=== PATIENT | male | born 1980 | race Caucasian/White ===

== ENCOUNTER 2016-10-16 17:03 | Emergency (ER) | payer OTHER ==
[~2016-10-16] VITALS: Ht 193 cm; Wt 105.5 kg
[~2016-10-16 17:03] MED LIST: BACTDS PO; CEPH-443 PO; HYDR-3498 PO
[2016-10-16 17:07] VITALS: Ht 193 cm; Wt 105.5 kg
--- NOTE | 2016-10-16 17:41 | ERD ---
ER Documentation Chief Complaint Date/Time DATE: 10/16/16 TIME: 17:39 Chief Complaint lower back pain x 1 week HPI This is a 36-year-old male who presents to the emergency room for evaluation of atraumatic back pain. 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 He states that he has had plain in his back over the past 2 weeks and he localized the pain to the lower back. The patient denies any fevers, urinary retention, urinary incontinence, or numbness or tingling associated with this. He states it is worse when he bends forward. Patient states she has been taking Motrin at home however came to the emergency room for pain medication. After some questioning the patient did state that he is in a narcotic program for outpatient treatment. ROS All systems reviewed and are negative except as per history of present illness. Medications Home Meds Active Scripts Hydrocodone Bit-Acetaminophen* ([place]*) 5-325 Mg Tab, 1 TAB PO Q6 Y for PAIN, # 14 TAB Prov:RHODA MCARTHUR PA-C 03/09/15 Sulfamethoxazole-Trimethoprim* (Bactrim* DS) 800-160 Mg Tab, 1 TAB PO BID for 10 Days, TAB Prov:RHODA MCARTHUR PA-C 03/09/15 Cephalexin* (Keflex*) 500 Mg Capsule, 500 MG PO QID for 7 Days, CAP Prov:RHODA MCARTHUR PA-C 03/09/15 Allergies Allergies: Coded Allergies: No Known Allergy (Unverified , 03/09/15) PMhx/Soc History of Surgery: No Anesthesia Reaction: No Hx Neurological Disorder: No Hx Respiratory Disorders: No Hx Cardiac Disorders: No Hx Psychiatric Problems: No Hx Miscellaneous Medical Probl: Yes (HIV positive) Hx Alcohol Use: No Hx Substance Use: Yes Hx Tobacco Use: Yes Smoking Status: Current every day smoker Physical Exam Vitals Vital Signs Date Time Temp Pulse Resp B/P Pulse Ox O2 Delivery O2 Flow Rate FiO2 10/16/16 17:07 98.0 118 18 111/72 99 Physical Exam Const: No acute distress Head: Atraumatic Eyes: Normal Conjunctiva ENT: Normal External Ears, Nose and Mouth. Neck: Full range of motion..~ No meningismus. Resp: Clear to auscultation bilaterally Cardio: Regular rate and rhythm, no murmurs Abd: Soft, non tender, non distended. Normal bowel sounds Skin: No petechiae or rashes Back: Paraspinal tenderness bilaterally from L1-L3, no gross deformities, no step no midline or flank tenderness Ext: No cyanosis, or edema Neur: Awake and alert Psych: Normal Mood and Affect Procedures/MDM This 36-year-old male presents to the emergency room for evaluation of atraumatic back pain. When I evaluated this patient had mild tenderness to palpation over his paraspinal muscles in the lumbar spine. The patient denies any new trauma. The patient did say he came to the emergency room for pain medicine however after questioning he does state that he is on an outpatient narcotic program. The patient was given 25 mg p.o. of tramadol. I advised him I will not write him a prescription for narcotic medication and he will be discharged home at this time with a prescription for Tylenol for acute lumbar strain. Patient presents today with atraumatic back pain. Although infection, malignancy, GI, , and vascular causes have been considered in this patient, the patient's clinical presentation is most consistent with a musculoskeletal cause. There is neither evidence of any acute neurologic damage, nor of loss of function and thus, advanced imaging studies have been deferred. Patient will be treated conservatively with appropriate pain control precautionary discharge instructions provided. My Smoking Cessation Therapy: Pt. was lectured for greater than 3 minutes on the health risks of continued smoking and the benefits of cessation. Departure Diagnosis: Primary Impression: Back pain Additional Impressions: Tobacco abuse Tobacco abuse counseling Condition: Stable YOANA WOLFE DO October 16, 2016 17:41
[2016-10-16] MEDS ORDERED: ACET500T98 PO (17:42)
[2016-10-16] MEDS ORDERED: traMADol 50 MG TAB PO ONE (18:00)
== END 2016-10-16 19:22 | disposition home or self-care (01) ==
LOC: FTE 17:03
DX: M54.5 Low back pain (principal); F17.210 Nicotine dependence, cigarettes, uncomplicated; Z71.6 Tobacco abuse counseling
CPT/HCPCS: Z7502; Z7610; 99283

== ENCOUNTER 2017-03-02 00:05 | Emergency (ER) | payer OTHER ==
[~2017-03-02] VITALS: Ht 185.4 cm; Wt 121.5 kg
[~2017-03-02 00:05] MED LIST changes: +ACET500T98 PO
[2017-03-02 00:15] VITALS: Ht 185.4 cm; Wt 121.5 kg
[2017-03-02] MEDS ORDERED: morphine 2 MG INJ IV STA (01:36)
[2017-03-02] MEDS ORDERED: SOD CHLORIDE 0.9% 1,000 ML IV STA (01:36)
[2017-03-02 02:33] LABS: BASOPHIL # 0.1 10^3/ul (0.0-0.1); BASOPHILS % 0.4 % (0.0-2.0); EOSINOPHILS # 0.5 10^3/ul (0.0-0.5); EOSINOPHILS % 4.3 % (0.0-7.0); HEMATOCRIT 46.1 % (42.0-52.0); HEMOGLOBIN 15.3 g/dl (14.0-18.0); LYMPHOCYTES # 3.6 10^3/ul (0.8-2.9); LYMPHOCYTES % 32.4 % (15.0-51.0); MEAN CORPUSCULAR HEMOGLOBIN 30.8 pg (29.0-33.0); MEAN CORPUSCULAR HGB CONC 33.2 g/dl (32.0-37.0); MEAN CORPUSCULAR VOLUME 92.8 fl (82.0-101.0); MEAN PLATELET VOLUME 10.4 fl (7.4-10.4); MONOCYTE # 1.1 10^3/ul (0.3-0.9); MONOCYTES % 9.9 % (0.0-11.0); NEUTROPHIL # 5.9 10^3/ul (1.6-7.5); NEUTROPHILS % 52.6 % (39.0-77.0); PLATELET COUNT 262 10^3/UL (140-415); RED BLOOD COUNT 4.97 10^6/ul (4.70-6.10); RED CELL DISTRIBUTION WIDTH 12.7 % (11.5-14.5); WHITE BLOOD COUNT 11.2 10^3/ul (4.8-10.8)
[2017-03-02 02:40] LABS: ADD UMIC NO; UR ASCORBIC ACID NEGATIVE (NEGATIVE); UR BILIRUBIN (Dip) NEGATIVE (NEGATIVE); UR BLOOD (Dip) NEGATIVE (NEGATIVE); UR CLARITY CLEAR (CLEAR); UR COLOR YELLOW (YELLOW); UR GLUCOSE (Dip) NEGATIVE (NEGATIVE); UR KETONES (Dip) NEGATIVE (NEGATIVE); UR LEUKOCYTE ESTERASE (Dip) NEGATIVE Leu/ul (NEGATIVE); UR NITRITE (Dip) NEGATIVE (NEGATIVE); UR SPECIFIC GRAVITY (Dip) 1.025 (1.003-1.030); UR TOTAL PROTEIN (Dip) NEGATIVE (NEGATIVE); UR UROBILINOGEN (Dip) NEGATIVE (NEGATIVE)
[2017-03-02] MEDS ORDERED: KETOROLAC 30 MG INJ IV STA (02:49)
[2017-03-02 02:57] LABS: ALBUMIN 4.4 g/dl (3.3-4.9); ALBUMIN/GLOBULIN RATIO 1.15; BILIRUBIN,INDIRECT 0.2 mg/dl (0-1.1); BILIRUBIN,TOTAL 0.2 mg/dl (0.2-1.3); CALCIUM 9.2 mg/dl (8.4-10.2); CREATININE 0.98 mg/dl (0.61-1.24); POTASSIUM 4.4 mmol/L (3.5-5.1); TOTAL PROTEIN 8.2 g/dl (6.1-8.1)
[2017-03-02] MEDS ORDERED: SOD CHLORIDE 0.9% 100 ML ONE (03:26)
[2017-03-02] MEDS ORDERED: IOHEXOL 300MG/ML 150 ML BTL ONE (03:26)
--- NOTE | 2017-03-02 05:10 | RADRPT ---
PROCEDURE: CT abdomen and pelvis with intravenous contrast. CLINICAL INDICATION: Pain. TECHNIQUE: CT of the abdomen/pelvis was performed utilizing axial images with reconstructions in s agittal and coronal planes after uneventful administration of 100 cc Omnipaque 300. The administered radiation dose is CTDI 22 mGy, DLP 1729 mGy-cm. One or more of the following dose reduction techniq ues were used: automated exposure control, adjustment of the mA and/or kV according to patient size and/or use of iterative reconstruction technique. COMPARISON: No pertinent prior examinations were submitted for comparison. FINDINGS: Visualized Chest: The visualized lung bases are clear. Abdomen: The spleen, pancreas, gallbladder,and adrenal glands are unremarkable. The liver is diffusely dec reased in attenuation, compatible with hepatic steatosis. The kidneys are without hydronephrosis. No definite urinary calculi are seen. There is no evidence of bowel obstruction. The appendix is normal. No intra-abdominal free air is seen. There is a moderate-sized periumbilical hernia which contains omentum. There is extensive inf lammation within the herniated fat along with small amounts of fluid. Some of the inflammatory osorio es extending to the subjacent omentum. Some diverticula are noted along the sigmoid colon without ev idence of diverticulitis. There is no evidence of intra-abdominal adenopathy or free fluid. Pelvis: There is no evidence of pelvic adenopathy or free fluid. The prostate and bladder are unremarkable. Osseous structures: Unremarkable. IMPRESSION: Moderate-sized omentum containing periumbilical hernia. Inflammatory changes and fluid are seen with in the hernia, suggesting omental infarct. This is presumably causing the patient's symptoms. Hepatic steatosis. RPTAT: HIKT .Abiel Tabares MD, Date Time Electronically viewed and signed by .Abiel Tabares MD, on 03/02/2017 05:09 .T/
[2017-03-02] MEDS ORDERED: HYDR-906 PO (05:17)
[2017-03-02] MEDS ORDERED: NAPR-688 PO (05:17)
--- NOTE | 2017-03-02 05:24 | ERD ---
ER Documentation Chief Complaint Date/Time DATE: 03/02/17 TIME: 05:21 Chief Complaint abd pain, hx hernia HPI This 36-year-old male comes in for pain surrounding his umbilical hernia that he has had for some time. States that it has grown over time. Denies nausea vomiting, fever and chills. Pain is worse when he pushes on it and the pain is sharp in nature. ROS All systems reviewed and are negative except as per history of present illness. Medications Home Meds Active Scripts Hydrocodone/Acetaminophen ([place] 5-325 Tablet) 1 Each Tablet, 1 EACH PO Q6, #19 TAB Prov:FANNYPADMINI DO 03/02/17 Naproxen* (Naproxen*) 500 Mg Tablet, 500 MG PO BID for PAIN, #20 TAB Prov:GREENPADMINI DO 03/02/17 Acetaminophen (Tylenol) 500 Mg Tab, 500 MG PO Q8, #30 TAB Prov:YOANA WOLFE DO 10/16/16 Hydrocodone Bit-Acetaminophen* ([place]*) 5-325 Mg Tab, 1 TAB PO Q6 Y for PAIN, # 14 TAB Prov:RHODA MCARTHUR PA-C 03/09/15 Sulfamethoxazole-Trimethoprim* (Bactrim* DS) 800-160 Mg Tab, 1 TAB PO BID for 10 Days, TAB Prov:RHODA MCARTHUR PA-C 03/09/15 Cephalexin* (Keflex*) 500 Mg Capsule, 500 MG PO QID for 7 Days, CAP Prov:RHODA MCARTHUR PA-C 03/09/15 Allergies Allergies: Coded Allergies: No Known Allergy (Unverified , 03/09/15) PMhx/Soc History of Surgery: No Anesthesia Reaction: No Hx Neurological Disorder: No Hx Respiratory Disorders: No Hx Cardiac Disorders: No Hx Psychiatric Problems: No Hx Miscellaneous Medical Probl: Yes (ADHD) Hx Alcohol Use: No Hx Substance Use: No Hx Tobacco Use: Yes Smoking Status: Never smoker Physical Exam Vitals Vital Signs Date Time Temp Pulse Resp B/P Pulse Ox O2 Delivery O2 Flow Rate FiO2 03/02/17 02:58 92 20 144/91 98 Room Air 03/02/17 00:15 99.2 78 18 198/86 97 Physical Exam Const: [] Head: Atraumatic Eyes: Normal Conjunctiva ENT: Normal External Ears, Nose and Mouth. Neck: Full range of motion..~ No meningismus. Resp: Clear to auscultation bilaterally Cardio: Regular rate and rhythm, no murmurs Abd: Soft, non tender, non distended. Normal bowel sounds Skin: No petechiae or rashes Back: No midline or flank tenderness Ext: No cyanosis, or edema Neur: Awake and alert Psych: Normal Mood and Affect Result Diagram: 03/02/17 0150 03/02/17 0150 Results 24 hrs Laboratory Tests Test 03/02/17 01:50 White Blood Count 11.210^3/ul Red Blood Count 4.9710^6/ul Hemoglobin 15.3g/dl Hematocrit 46.1% Mean Corpuscular Volume 92.8fl Mean Corpuscular Hemoglobin 30.8pg Mean Corpuscular Hemoglobin Concent 33.2g/dl Red Cell Distribution Width 12.7% Platelet Count 12683^3/UL Mean Platelet Volume 10.4fl Neutrophils % 52.6% Lymphocytes % 32.4% Monocytes % 9.9% Eosinophils % 4.3% Basophils % 0.4% Nucleated Red Blood Cells % 0.0/100WBC Neutrophils # 5.910^3/ul Lymphocytes # 3.610^3/ul Monocytes # 1.110^3/ul Eosinophils # 0.510^3/ul Basophils # 0.110^3/ul Nucleated Red Blood Cells # 0.010^3/ul Urine Color YELLOW Urine Clarity CLEAR Urine pH 6.0 Urine Specific [place] 1.025 Urine Ketones NEGATIVEmg/dL Urine Nitrite NEGATIVEmg/dL Urine Bilirubin NEGATIVEmg/dL Urine Urobilinogen NEGATIVEmg/dL Urine Leukocyte Esterase NEGATIVELeu/ul Urine Hemoglobin NEGATIVEmg/dL Urine Glucose NEGATIVEmg/dL Urine Total Protein NEGATIVEmg/dl Sodium Level 143mmol/L Potassium Level 4.4mmol/L Chloride Level 106mmol/L Carbon Dioxide Level 29mmol/L Anion Gap 12 Blood Urea Nitrogen 17mg/dl Creatinine 0.98mg/dl Glucose Level 124mg/dl Calcium Level 9.2mg/dl Total Bilirubin 0.2mg/dl Direct Bilirubin 0.00mg/dl Indirect Bilirubin 0.2mg/dl Aspartate Amino Transf (AST/SGOT) 40IU/L Alanine Aminotransferase (ALT/SGPT) 96IU/L Alkaline Phosphatase 82IU/L Total Protein 8.2g/dl Albumin 4.4g/dl Globulin 3.80g/dl Albumin/Globulin Ratio 1.15 Lipase 122U/L Current Medications Medications (Trade) Dose Ordered Sig/Anthony Route PRN Reason Start Time Stop Time Status Last Admin Dose Admin Sodium Chloride (NS) 1,000 ml @ 1,000 mls/hr Q1H STAT IV 03/02/17 01:36 03/02/17 02:35 DC 03/02/17 01:54 Morphine Sulfate (morphine) 2 mg ONCE STAT IV 03/02/17 01:36 03/02/17 01:37 DC Ketorolac Tromethamine (Toradol) 30 mg ONCE STAT IV 03/02/17 02:49 03/02/17 02:50 DC 03/02/17 02:55 IV Flush 10 ml 10 ml STK-MED ONCE .ROUTE 03/02/17 03:26 03/02/17 03:27 DC 03/02/17 04:02 Sodium Chloride (NS) 100 ml @ ud STK-MED ONCE .ROUTE 03/02/17 03:26 03/02/17 03:27 DC 03/02/17 04:03 Iohexol (Omnipaque 300mg/ ml) 150 ml STK-MED ONCE .ROUTE 03/02/17 03:26 03/02/17 03:27 DC 03/02/17 04:03 Procedures/MDM Omentum containing umbilical hernia with possible omental infarction. Hernia is easily reducible. Patient was given morphine IV fluid and Toradol emergency room with relief of pain. He has no nausea. I am going to discharge him with instructions to see a general surgeon. Patient does have insurance and told to call the number on the card for his primary care doctor and obtain referral through his primary care doctor. Return precautions given for any increasing pain or concerning symptoms. CT abdomen pelvis interpretation: Umbilical hernia with omentum within and no bowel loops, inflammation suggesting possible omental infarction. No bowel obstruction, no free air, no fractures Departure Diagnosis: Primary Impression: Acute abdominal pain Additional Impressions: Umbilical hernia Omental infarction Condition: Stable Patient Instructions: Abdominal Pain, Hernia (Inguinal, Ventral, Umbilical) Additional Instructions: Call your primary care doctor TOMORROW for a RERERRAL TO A GENERAL SUGEON.See the doctor sooner or return here if your condition worsens before your appointment time. PADMINI ESCOBEDO DO Mar 02, 2017 05:24
[2017-03-02 05:28] VITALS: BP 135/85; PULSE 78; RESP 18
== END 2017-03-02 05:30 | disposition home or self-care (01) ==
LOC: E/R 00:05
DX: K42.9 Umbilical hernia without obstruction or gangrene (principal); K55.069 Acute infarction of intestine, part and extent unspecified
CPT/HCPCS: 36415; 74177; 80053; 81003; 83690; 85025; 96374; J1885; J7030; Q9967; Z7502; Z7610

== ENCOUNTER 2017-03-09 19:53 | Emergency (ER) | payer SELFPAY ==
[~2017-03-09] VITALS: Ht 182.9 cm; Wt 122.5 kg
[~2017-03-09 19:53] MED LIST changes: +HYDR-906 PO; +NAPR-688 PO
[2017-03-09 19:57] VITALS: Ht 182.9 cm; Wt 122.5 kg
== END 2017-03-09 22:23 | disposition left against medical advice (07) ==
LOC: E/R 19:53
DX: Z53.21 Procedure and treatment not carried out due to patient leaving prior to being seen by health care provider (principal)

== ENCOUNTER 2017-03-18 12:19 | Emergency (ER) | payer SELFPAY ==
[~2017-03-18] VITALS: Ht 193 cm; Wt 117.5 kg
[2017-03-18 12:29] VITALS: Ht 193 cm; Wt 117.5 kg
== END 2017-03-18 16:09 | disposition left against medical advice (07) ==
LOC: FTE 12:19
DX: Z53.21 Procedure and treatment not carried out due to patient leaving prior to being seen by health care provider (principal)

== ENCOUNTER 2018-03-29 12:16 | Emergency (ER) | END 2018-03-29 15:07 | disposition home or self-care (01) ==

== ENCOUNTER 2019-01-16 00:45 | Emergency (ER) | payer OTHER ==
[~2019-01-16] VITALS: Ht 193 cm; Wt 121.4 kg
[~2019-01-16 00:45] MED LIST changes: +ACET500C5 PO; +HYDR-4011 PO; -HYDR-906 PO; +IBUP-1542 PO; +SULF1TAB31 PO
[2019-01-16 00:50] VITALS: Ht 193 cm; Wt 121.4 kg
[2019-01-16 02:23] VITALS: BP 149/109; PULSE 108; RESP 18
== END 2019-01-16 02:25 | disposition home or self-care (01) ==
LOC: E/R 00:45
DX: L03.116 Cellulitis of left lower limb (principal); F17.210 Nicotine dependence, cigarettes, uncomplicated; R00.0 Tachycardia, unspecified
CPT/HCPCS: 71045; 93971; Z7502; 93005

== ENCOUNTER 2019-02-16 09:59 | Emergency (ER) | payer OTHER ==
[~2019-02-16] VITALS: Ht 193 cm; Wt 105.0 kg
[~2019-02-16 09:59] MED LIST changes: +ACET1TAB40 PO; +DOXY100T34 PO
[2019-02-16 10:04] VITALS: BP 141/104; PULSE 121; RESP 18; Ht 193 cm; Wt 105.0 kg
[2019-02-16] MEDS ORDERED: LIDOCAINE 2%/EPI MPF (SDV) 20 ML VIAL INJ STA (12:11)
[2019-02-16] MEDS ORDERED: DOXYCYCLINE 100 MG TAB PO ONE (13:00)
[2019-02-16] MEDS ORDERED: HYDROCODONE/APAP (5/325) TAB PO ONE (13:00)
== END 2019-02-16 13:47 | disposition home or self-care (01) ==
LOC: FTE 09:59
DX: I83.92 Asymptomatic varicose veins of left lower extremity (principal); L03.116 Cellulitis of left lower limb; F17.210 Nicotine dependence, cigarettes, uncomplicated
CPT/HCPCS: 12001; Z7502; Z7610